=== PATIENT | female | born 1995 | race Caucasian/White ===

== ENCOUNTER 2016-11-20 23:07 | Emergency (ER) | payer BC ==
[2016-11-20] MEDS ORDERED: Ondansetron 4 MG/2 ML SDV IVPUSH ONE (23:11)
[2016-11-20] MEDS ORDERED: Sodium Chloride 0.9% 1,000 ML IV ONE (23:11)
--- NOTE | 2016-11-20 23:13 | EDM.PDOC ---
ED HPI GENERAL MEDICAL PROBLEM - General Stated Complaint: DEHYDRATION; 7 WEEKS Time Seen by Provider: 11/20/16 23:12 Source of Information: Reports: Patient - History of Present Illness INITIAL COMMENTS - FREE TEXT/NARRATIVE: HISTORY AND PHYSICAL: History of present illness: [] Patient is 28 Patient presents 7 weeks with IUP nausea vomiting feels dehydrated LMP September 23 uncertain dates, she has had followup with Dr. Bernal at [facility], she was offered ultrasound at that time in the office however she declined. No vaginal discharge fluid leakage spotting or bleeding no low back pain and pressure No fever or chills sweats no chest pain shortness breath headache dizziness or palpitation no Review of systems: As per history of present illness and below otherwise all systems reviewed and negative. Past medical history: As per history of present illness and as reviewed below otherwise noncontributory. Surgical history: As per history of present illness and as reviewed below otherwise noncontributory. Social history: No reported history of drug or alcohol abuse. Family history: As per history of present illness and as reviewed below otherwise noncontributory. Physical exam: HEENT: Atraumatic, normocephalic, pupils reactive, negative for conjunctival pallor or scleral icterus, mucous membranes moist, throat clear, neck supple, nontender, trachea midline. Lungs: Clear to auscultation, breath sounds equal bilaterally, chest nontender. Heart: S1S2, regular, negative for clicks, rubs, or JVD. Abdomen: Soft, nondistended, nontender. Negative for masses or hepatosplenomegaly. Negative for costovertebral tenderness. Pelvis: Stable nontender. Genitourinary: Deferred. Rectal: Deferred. Extremities: Atraumatic, negative for cords or calf pain. Neurovascular unremarkable. Neuro: Awake, alert, oriented. Cranial nerves II through XII unremarkable. Cerebellum unremarkable. Motor and sensory unremarkable throughout. Exam nonfocal. Diagnostics: [] UA [employer]: [] 1 L normal saline bolus Zofran 8 mg IV Zofran 8 mg ODT every 8 when necessary #30 no refill Followup with Dr. Bernal as scheduled sooner as needed Impression: [] Nausea vomiting and Definitive disposition and diagnosis as appropriate pending reevaluation and review of above. no pain Pain Score (Numeric/FACES): 0 - Related Data Allergies Allergy/AdvReac Type Severity Reaction Status Date / Time No Known Allergies Allergy Verified 11/20/16 23:16 Home Meds: Home Meds Pnv No.122/Iron/Folic Acid [ Multi Tablet] 1 tab PO DAILY 11/20/16 [ History] Progesterone,Micronized [Progesterone] 100 mg PO DAILY 11/20/16 [History] Past Medical History - Past Health History Medical/Surgical History: Denies Medical/Surgical History Social & Family History - Tobacco Use Smoking Status *Q: Never Smoker - Alcohol Use Days Per Week of Alcohol Use: 0 - Recreational Drug Use Recreational Drug Use: No ED ROS GENERAL - Review of Systems Review Of Systems: ROS reveals no pertinent complaints other than HPI. ED EXAM, GENERAL - Physical Exam Exam: See Below Course - Vital Signs Last Recorded V/S: Last Vital Signs Temp 36.6 C 11/20/16 23:18 Pulse 70 11/20/16 23:18 Resp 16 11/20/16 23:18 BP 121/76 11/20/16 23:18 Pulse Ox 98 11/20/16 23:18 - Orders/Labs/Meds Orders: Active Orders 24 hr Category Date Time Status HCG QUALITATIVE,URINE [URCHEM] Stat Lab 11/21/16 00:07 Ordered UA W/MICROSCOPIC [URIN] Stat Lab 11/21/16 00:07 Ordered Sodium Chloride 0.9% [Normal Saline] 1,000 ml Med 11/20/16 23:11 Active IV STAT Medication Orders Sodium Chloride (Normal Saline) 1,000 mls @ 999 mls/hr IV STAT ONE Stop: 11/21/16 00:11 Last Admin: 11/20/16 23:31 Dose: 999 mls/hr Meds: Medications Generic Name Dose Route Start Last Admin Trade Name Freq PRN Reason Stop Dose Admin Sodium Chloride 1,000 mls @ 999 mls/hr 11/20/16 23:11 11/20/16 23:31 Normal Saline IV 11/21/16 00:11 999 mls/hr STAT ONE Administration Discontinued Medications Generic Name Dose Route Start Last Admin Trade Name Freq PRN Reason Stop Dose Admin Ondansetron HCl 8 mg 11/20/16 23:11 11/20/16 23:31 Zofran IVPUSH 11/20/16 23:12 8 mg ONETIME ONE Administration Departure - Departure Time of Disposition: 00:08 Disposition: Home, Self-Care 01 Condition: good Clinical Impression: Vomiting during - Discharge Information Additional Instructions: Medication as prescribed Return if symptoms persist or worsen Followup with Dr. Bernal as scheduled sooner as needed The following information is given to patients seen in the emergency department who are being discharged to home. This information is to outline your options for follow-up care. We provide all patients seen in our emergency department with a follow-up referral. The need for follow-up, as well as the timing and circumstances, are variable depending upon the specifics of your emergency department visit. If you don't have a primary care physician on staff, we will provide you with a referral. We always advise you to contact your personal physician following an emergency department visit to inform them of the circumstance of the visit and for follow-up with them and/or the need for any referrals to a consulting specialist. The emergency department will also refer you to a specialist when appropriate. This referral assures that you have the opportunity for follow-up care with a specialist. All of these measure are taken in an effort to provide you with optimal care, which includes your follow-up. Under all circumstances we always encourage you to contact your private physician who remains a resource for coordinating your care. When calling for follow-up care, please make the office aware that this follow-up is from your recent emergency room visit. If for any reason you are refused follow-up, please contact the [facility] emergency department at and asked to speak to the emergency department charge nurse. - My Orders Last 24 Hours: My Active Orders 11/20/16 23:11 Sodium Chloride 0.9% [Normal Saline] 1,000 ml IV STAT 11/21/16 00:07 HCG QUALITATIVE,URINE [URCHEM] Stat UA W/MICROSCOPIC [URIN] Stat - Assessment/Plan Last 24 Hours: My Active Orders 11/20/16 23:11 Sodium Chloride 0.9% [Normal Saline] 1,000 ml IV STAT 11/21/16 00:07 HCG QUALITATIVE,URINE [URCHEM] Stat UA W/MICROSCOPIC [URIN] Stat
[2016-11-21 00:29] VITALS: BP 111/68
== END 2016-11-21 00:33 | disposition home or self-care (01) ==
LOC: MW.ED 23:07
DX: O21.9 Vomiting of pregnancy, unspecified (principal); Z3A.01 Less than 8 weeks gestation of pregnancy; Z79.899 Other long term (current) drug therapy
CPT/HCPCS: 81001; 81025; 96361; 96374; 99283; J2405; J7040; 99284

== ENCOUNTER 2017-07-07 14:11 | Inpatient (IN) | payer BC ==
[2017-07-07] MEDS ORDERED: Methylergonovine 0.2 MG/1 ML Amp IM PRN (15:24)
[2017-07-07] MEDS ORDERED: Sodium Chloride 0.9% 2.5 ML Syringe FLUSH PRN (15:24)
[2017-07-07] MEDS ORDERED: Misoprostol 200 MCG Tab PO PRN (15:24)
[2017-07-07] MEDS ORDERED: Nalbuphine 10 MG/1 ML Vial IVPUSH PRN (15:24)
[2017-07-07] MEDS ORDERED: Sodium Chloride 0.9% 10 ML Syringe FLUSH PRN (15:24)
[2017-07-07] MEDS ORDERED: Lidocaine 1% 50 ML MDV INJECT PRN (15:24)
[2017-07-07] MEDS ORDERED: Carboprost Tromethamine 250 MCG/1 ML Amp IM PRN (15:24)
[2017-07-07] MEDS ORDERED: Water For Irrigation,Sterile 1,000 ML Container IRR PRN (15:24)
[2017-07-07] MEDS ORDERED: Oxytocin/0.9 % Sodium Chloride 30 UNIT/500 ML BAG IV SCH ×2 (15:30→18:15)
--- NOTE | 2017-07-07 17:41 | PCM.LDHP ---
L&D History of Present Illness - General Date of Service: 07/07/17 Admit Problem/Dx: Patient Status Order with Admit Dx/Problem 07/07/17 14:20 Patient Status [ADT] Routine 07/07/17 15:24 Patient Status [ADT] Routine Admission Diagnosis/Problem Admission Diagnosis/Problem - planned Source of Information: Patient History Limitations: Reports: No Limitations - History of Present Illness Improves with: Reports: None Worsens with: Reports: None Associated Symptoms: Reports: N - Related Data Allergies/Adverse Reactions: Allergies Allergy/AdvReac Type Severity Reaction Status Date / Time No Known Allergies Allergy Verified 11/20/16 23:16 Home Medications: Home Meds Pnv No.122/Iron/Folic Acid [ Multi Tablet] 1 tab PO DAILY 11/20/16 [ History] Progesterone,Micronized [Progesterone] 100 mg PO DAILY 11/20/16 [History] Past Medical History - Past Health History Medical/Surgical History: Denies Medical/Surgical History HEENT History: Reports: None Cardiovascular History: Reports: None Respiratory History: Reports: None Gastrointestinal History: Reports: GERD Genitourinary History: Reports: None 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: Musculoskeletal History: Reports: None Neurological History: Reports: None Psychiatric History: Reports: Anxiety Endocrine/Metabolic History: Reports: None Hematologic History: Reports: None Oncologic (Cancer) History: Reports: None Dermatologic History: Reports: None - Infectious Disease History Infectious Disease History: Reports: None - Past Surgical History Female Surgical History: Reports: D&C Social & Family History - Family History Family Medical History: Noncontributory - Tobacco Use Smoking Status *Q: Never Smoker - Caffeine Use Caffeine Use: Reports: None - Alcohol Use Days Per Week of Alcohol Use: 0 - Recreational Drug Use Recreational Drug Use: No H&P Review of Systems - Review of Systems: Review Of Systems: See Below General: Reports: No Symptoms HEENT: Reports: No Symptoms Pulmonary: Reports: No Symptoms Cardiovascular: Reports: No Symptoms Gastrointestinal: Reports: No Symptoms Genitourinary: Reports: No Symptoms Musculoskeletal: Reports: No Symptoms Skin: Reports: No Symptoms Psychiatric: Reports: No Symptoms Neurological: Reports: No Symptoms Hematologic/Lymphatic: Reports: No Symptoms Immunologic: Reports: No Symptoms L&D Exam - Exam Exam: See Below - Vital Signs Weight: 87.997 kg - OB Specific Fundal Height In cm: 36 Contraction Intensity: Mild Movement: Active Heart Tones: Present Presentation: Vertex - Smith Score Smith Score Cervix Position: Posterior Smith Score Consistency: Soft Smith Score Effacement: >80% Smith Score Dilation: 1-2 cm Smith Score Infant's Station: -1 ,0 Smith Score Total: 8 - Exam General: Alert, Oriented HEENT: PERRLA, Conjunctiva Clear, EACs Clear, EOMI, Hearing Intact, Mucosa Moist & [place], Nares Patent, Normal Nasal Septum, Posterior Pharynx Clear, TMs Clear Neck: Supple, Trachea Midline Lungs: Clear to Auscultation, Normal Respiratory Effort Cardiovascular: Regular Rate, Regular Rhythm GI/Abdominal Exam: Normal Bowel Sounds, Soft, Non-Tender, No Organomegaly, No Distention, No Abnormal Bruit, No Mass, Pelvis Stable Rectal Exam: Normal Exam, Normal Rectal Tone Genitourinary: Normal external exam, Normal bimanual exam, Normal speculum exam Back Exam: Normal Inspection, Full Range of Motion Extremities: Normal Inspection, Normal Range of Motion, Non-Tender, No Pedal Edema, Normal Capillary Refill Skin: Warm, Dry, Intact Neurological: Cranial Nerves Intact, Reflexes Equal Bilateral Psychiatric: Alert, Normal Affect, Normal Mood - Patient Data Lab Results Last 24 hrs: Laboratory Results - last 24 hr 07/07/17 07/07/17 07/07/17 Range/Units 14:27 15:48 15:48 WBC 9.12 (4.0-11.0) K/uL RBC 4.03 L (4.30-5.90) M/uL Hgb 12.7 (12.0-16.0) g/dL Hct 37.6 (36.0-46.0) % MCV 93.3 (80.0-98.0) fL MCH 31.5 (27.0-32.0) pg MCHC 33.8 (31.0-37.0) g/dL RDW Std Deviation 42.5 (28.0-62.0) fl RDW Coeff of Jessy 13 (11.0-15.0) % Plt Count 177 (150-400) K/uL MPV 10.90 (7.40-12.00) fL Nucleated RBC % 0.0 /100WBC Nucleated RBCs # 0 K/uL Membrane Rupture POSITIVE Blood Type O POSITIVE Antibody Screen NEGATIVE Result Diagrams: 07/07/17 15:48 Problem List Initiated/Reviewed/Updated: Yes Orders Last 24hrs: Active Orders 24 hr Category Date Time Status Patient Status [ADT] Routine ADT 07/07/17 14:20 Active Patient Status [ADT] Routine ADT 07/07/17 15:24 Active Heart Tones [RC] CONTINUOUS Care 07/07/17 15:24 Active Non Stress Test [RC] PER UNIT ROUTINE Care 07/07/17 14:20 Active Non Stress Test [RC] PER UNIT ROUTINE Care 07/07/17 15:24 Active May Shower [RC] ASDIRECTED Care 07/07/17 15:24 Active Notify Provider [RC] PRN Care 07/07/17 15:24 Active Up ad Jimena [RC] ASDIRECTED Care 07/07/17 14:20 Active Up ad Jimena [RC] ASDIRECTED Care 07/07/17 15:24 Active Vaginal Exam [RC] Click to Edit Care 07/07/17 14:20 Active Vaginal Exam [RC] PRN Care 07/07/17 15:24 Active Vital Signs [RC] PER UNIT ROUTINE Care 07/07/17 14:20 Active Vital Signs [RC] PER UNIT ROUTINE Care 07/07/17 15:24 Active Clear Liquid Diet [DIET] Diet 07/07/17 Dinner Active Butorphanol [Stadol] Med 07/07/17 15:24 Active 1 mg IVPUSH ASDIRECTED PRN Carboprost Tromethamine [Hemabate DS] Med 07/07/17 15:24 Active 250 mcg IM ASDIRECTED PRN Lactated Ringers [Ringers, Lactated] 1,000 ml Med 07/07/17 15:30 Active IV ASDIRECTED Lidocaine 1% [Xylocaine 1%] Med 07/07/17 15:24 Active 50 ml INJECT .ONCE PRN Methylergonovine [Methergine] Med 07/07/17 15:24 Active 0.2 mg IM ASDIRECTED PRN Misoprostol [Cytotec] Med 07/07/17 15:24 Active 200 mcg PO .ONCE PRN Nalbuphine [Nubain] Med 07/07/17 15:24 Active 10 mg IVPUSH ASDIRECTED PRN Oxytocin/0.9 % Sodium Chloride [Oxytocin 30 Unit/500 ML Med 07/07/17 15:30 Active -NS] 30 unit in 500 ml IV TITRATE Sodium Chloride 0.9% [Saline Flush] Med 07/07/17 15:24 Active 10 ml FLUSH ASDIRECTED PRN Sodium Chloride 0.9% [Saline Flush] Med 07/07/17 15:24 Active 2.5 ml FLUSH ASDIRECTED PRN Water For Irrigation,Sterile [Sterile Water for Med 07/07/17 15:24 Active Irrigation] 1,000 ml IRR ASDIRECTED PRN Scalp Electrode [WOMSER] Per Unit Routine Oth 07/07/17 15:24 Ordered Peripheral IV Insertion Adult [OM.PC] Routine Oth 07/07/17 15:24 Ordered Resuscitation Status Routine Resus Stat 07/07/17 14:20 Ordered Medication Orders Butorphanol Tartrate (Stadol) 1 mg IVPUSH ASDIRECTED PRN PRN Reason: Pain Carboprost Tromethamine (Hemabate Ds) 250 mcg IM ASDIRECTED PRN PRN Reason: Post Hemorrhage Lactated Ringer's (Ringers, Lactated) 1,000 mls @ 150 mls/hr IV ASDIRECTED XIOMARA Oxytocin/Sodium Chloride (Oxytocin 30 Unit/500 Ml-Ns) 30 unit in 500 mls @ 999 mls/hr IV TITRATE XIOMARA Lidocaine HCl (Xylocaine 1%) 50 ml INJECT .ONCE PRN PRN Reason: Laceration repair Methylergonovine Maleate (Methergine) 0.2 mg IM ASDIRECTED PRN PRN Reason: Post Hemorrhage Misoprostol (Cytotec) 200 mcg PO .ONCE PRN PRN Reason: Post Hemorrhage Nalbuphine HCl (Nubain) 10 mg IVPUSH ASDIRECTED PRN PRN Reason: Pain (severe 7-10) Sodium Chloride (Saline Flush) 10 ml FLUSH ASDIRECTED PRN PRN Reason: Keep Vein Open Sodium Chloride (Saline Flush) 2.5 ml FLUSH ASDIRECTED PRN PRN Reason: Keep Vein Open Sterile Water (Sterile Water For Irrigation) 1,000 ml IRR ASDIRECTED PRN PRN Reason: delivery Assessment/Plan Comment:: Term 39+2 SROM confirmed will admit and start induction with Cytoec and pitocin.
[2017-07-07] MEDS ORDERED: Terbutaline 1 MG/ML SDV SUBCUT PRN (18:03)
[2017-07-07] MEDS: Misoprostol 25 MCG (1/4 of 100 MCG) Tab VAG PRN (19:29)
[2017-07-07] MEDS: Misoprostol 25 MCG (1/4 of 100 MCG) Tab PO PRN (19:29)
[2017-07-08] MEDS: Butorphanol 1 MG/ML SDV IVPUSH PRN ×2 (00:07→02:01)
[2017-07-08] MEDS: Misoprostol 25 MCG (1/4 of 100 MCG) Tab VAG PRN (01:43)
[2017-07-08] MEDS: Misoprostol 25 MCG (1/4 of 100 MCG) Tab PO PRN (01:43)
[2017-07-08] MEDS: Lactated Ringers 1,000 ML IV SCH ×3 (04:23→06:11)
[2017-07-08] MEDS ORDERED: Ropivacaine 100 ML ONE (04:50)
[2017-07-08] MEDS ORDERED: fentaNYL 100 MCG/2 ML SDV ONE (04:50)
--- NOTE | 2017-07-08 05:23 | PCM.PREANE ---
Preanesthetic Assessment - Anesthesia/Transfusion/Family Hx Anesthesia History: Prior Anesthesia Without Reaction Family History of Anesthesia Reaction: Yes (Pt states mother is "slow to come out", but denies any need for prolonged ventilation) - Review of Systems General: No Symptoms Pulmonary: No Symptoms Cardiovascular: No Symptoms Gastrointestinal: No Symptoms Neurological: No Symptoms Other: Reports: None - Physical Assessment NPO Status Date: 07/08/17 NPO Status Time: 05:19 (sips/chips) Pulse: 60 Blood Pressure: 126/85 Height: 5 ft 7 in Weight: 194 lb ASA Class: 2 Mental Status: Alert & Oriented x3 Airway Class: Mallampati = 1 Dentition: Reports: Normal Dentition Thyro-Mental Finger Breadths: 3 Mouth Opening Finger Breadths: 3 ROM/Head Extension: Full Lungs: Clear to Auscultation, Normal Respiratory Effort Cardiovascular: Regular Rate, Regular Rhythm - Lab Values: Laboratory Last Values WBC 9.12 K/uL (4.0-11.0) 07/07/17 15:48 RBC 4.03 M/uL (4.30-5.90) L 07/07/17 15:48 Hgb 12.7 g/dL (12.0-16.0) 07/07/17 15:48 Hct 37.6 % (36.0-46.0) 07/07/17 15:48 MCV 93.3 fL (80.0-98.0) 07/07/17 15:48 MCH 31.5 pg (27.0-32.0) 07/07/17 15:48 MCHC 33.8 g/dL (31.0-37.0) 07/07/17 15:48 RDW Std Deviation 42.5 fl (28.0-62.0) 07/07/17 15:48 RDW Coeff of Jessy 13 % (11.0-15.0) 07/07/17 15:48 Plt Count 177 K/uL (150-400) 07/07/17 15:48 MPV 10.90 fL (7.40-12.00) 07/07/17 15:48 Nucleated RBC % 0.0 /100WBC 07/07/17 15:48 Nucleated RBCs # 0 K/uL 07/07/17 15:48 Membrane Rupture POSITIVE 07/07/17 14:27 Blood Type O POSITIVE 07/07/17 15:48 Antibody Screen NEGATIVE 07/07/17 15:48 - Allergies Allergies/Adverse Reactions: Allergies Allergy/AdvReac Type Severity Reaction Status Date / Time No Known Allergies Allergy Verified 11/20/16 23:16 - Blood Blood Available: No Product(s) Available: None - Anesthesia Plan Free Text/Narrative:: Labor Epidural Pre-Op Medication Ordered: None - Acknowledgements Anesthesia Type Planned: Epidural Pt an Appropriate Candidate for the Planned Anesthesia: Yes Alternatives and Risks of Anesthesia Discussed w Pt/Guardian: Yes Pt/Guardian Understands and Agrees with Anesthesia Plan: Yes PreAnesthesia Questionnaire - Past Health History Medical/Surgical History: Denies Medical/Surgical History HEENT History: Reports: None Cardiovascular History: Reports: None Respiratory History: Reports: None Gastrointestinal History: Reports: GERD (bad reflux with ) Genitourinary History: Reports: None 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: Musculoskeletal History: Reports: None Neurological History: Reports: None Psychiatric History: Reports: Anxiety Endocrine/Metabolic History: Reports: None Hematologic History: Reports: None Oncologic (Cancer) History: Reports: None Dermatologic History: Reports: None - Infectious Disease History Infectious Disease History: Reports: None - Past Surgical History Female Surgical History: Reports: D&C - SUBSTANCE USE Smoking Status *Q: Never Smoker Days Per Week of Alcohol Use: 0 Recreational Drug Use History: No - HOME MEDS Home Medications: Home Meds Pnv No.122/Iron/Folic Acid [ Multi Tablet] 1 tab PO DAILY 11/20/16 [ History] Progesterone,Micronized [Progesterone] 100 mg PO DAILY 11/20/16 [History] - CURRENT (IN HOUSE) MEDS Current Meds: Current Medications Butorphanol Tartrate (Stadol) 1 mg IVPUSH ASDIRECTED PRN PRN Reason: Pain Last Admin: 07/08/17 02:01 Dose: 1 mg Carboprost Tromethamine (Hemabate Ds) 250 mcg IM ASDIRECTED PRN PRN Reason: Post Hemorrhage Lactated Ringer's (Ringers, Lactated) 1,000 mls @ 150 mls/hr IV ASDIRECTED XIOMARA Last Admin: 07/08/17 04:23 Dose: 150 mls/hr Oxytocin/Sodium Chloride (Oxytocin 30 Unit/500 Ml-Ns) 30 unit in 500 mls @ 999 mls/hr IV TITRATE XIOMARA Oxytocin/Sodium Chloride (Oxytocin 30 Unit/500 Ml-Ns) 30 unit in 500 mls @ 2 mls/hr IV TITRATE XIOMARA; 2 MUNITS/MIN PRN Reason: Protocol Lidocaine HCl (Xylocaine 1%) 50 ml INJECT .ONCE PRN PRN Reason: Laceration repair Methylergonovine Maleate (Methergine) 0.2 mg IM ASDIRECTED PRN PRN Reason: Post Hemorrhage Misoprostol (Cytotec) 200 mcg PO .ONCE PRN PRN Reason: Post Hemorrhage Misoprostol (Cytotec) 25 mcg PO Q4HR PRN PRN Reason: cervical ripening Last Admin: 07/08/17 01:43 Dose: 25 mcg Misoprostol (Cytotec) 25 mcg VAG Q4H PRN PRN Reason: Cervical Ripening Last Admin: 07/08/17 01:43 Dose: 25 mcg Nalbuphine HCl (Nubain) 10 mg IVPUSH ASDIRECTED PRN PRN Reason: Pain (severe 7-10) Sodium Chloride (Saline Flush) 10 ml FLUSH ASDIRECTED PRN PRN Reason: Keep Vein Open Sodium Chloride (Saline Flush) 2.5 ml FLUSH ASDIRECTED PRN PRN Reason: Keep Vein Open Sterile Water (Sterile Water For Irrigation) 1,000 ml IRR ASDIRECTED PRN PRN Reason: delivery Terbutaline Sulfate (Brethine) 0.25 mg SUBCUT ASDIRECTED PRN PRN Reason: Tacysystole Discontinued Medications Fentanyl (Sublimaze) Confirm Administered Dose 100 mcg .ROUTE .STK-MED ONE Stop: 07/08/17 04:51 Ropivacaine (Naropin 0.2%) Confirm Administered Dose 100 mls @ as directed .ROUTE .STK-MED ONE Stop: 07/08/17 04:51
[2017-07-08] MEDS ORDERED: Bupivacaine 0.5% 10 ML SDV ONE (09:15)
[2017-07-08] MEDS ORDERED: Ropivacaine 0.2% 2 MG/ML 20 ML SDV ONE (09:19)
--- NOTE | 2017-07-08 14:16 | PCM.DEL ---
L & D Note - General Info Date of Service: 07/08/17 Mother's Due Date: 07/11/17 - Delivery Note Labor: Augmented by Oxytocin Cervical Ripening Method: Oxytocin Delivery Outcome: Livebirth Delivery Method: Spontaneous Vaginal Delivery-Single Infant Delivery Mode: Spontaneous Presentation: Vertex Nuchal Cord: Present Anesthesia Type: Epidural Amniotic Fluid Description: Clear Episiotomy Type: None Laceration: 2nd Degree, Perineal Suture type: Vicryl Suture size: 3-0 Placenta: Intact, Spontaneous Cord: 3 Vessels Resuscitation Needed: No : Stimulated, [place] Used, Warmer Used Score 1 min: 8 Score 5 min: 9 - General Info Date of Service: 07/08/17 Admission Dx/Problem (Free Text): Patient Status Order with Admit Dx/Problem 07/07/17 14:20 Patient Status [ADT] Routine 07/07/17 15:24 Patient Status [ADT] Routine Admission Diagnosis/Problem Admission Diagnosis/Problem - planned Subjective Update: 21 year old female that is now a s/p of a term male with scores of 8 and 9 at 1 and 5 minutes respectively. No complications noted during delivery. Mother will be breast feeding. She did suffer a second degree perineal tear that was repaired with 3-0 vicryl. Patient tolerated this well. Functional Status: Reports: Pain Controlled - Review of Systems General: Reports: No Symptoms HEENT: Reports: No Symptoms Pulmonary: Reports: No Symptoms Cardiovascular: Reports: No Symptoms Gastrointestinal: Reports: No Symptoms Genitourinary: Reports: No Symptoms Musculoskeletal: Reports: No Symptoms Skin: Reports: No Symptoms Neurological: Reports: Other (received epidural. very little feeling in legs currently.) Psychiatric: Reports: No Symptoms - Patient Data Vitals - Most Recent: Last Vital Signs Temp Pulse 60 07/08/17 05:23 Resp BP 126/85 07/08/17 05:23 Pulse Ox Weight - Most Recent: 194 lb Lab Results Last 24 Hours: Laboratory Results - last 24 hr 07/07/17 07/07/17 07/07/17 Range/Units 14:27 15:48 15:48 WBC 9.12 (4.0-11.0) K/uL RBC 4.03 L (4.30-5.90) M/uL Hgb 12.7 (12.0-16.0) g/dL Hct 37.6 (36.0-46.0) % MCV 93.3 (80.0-98.0) fL MCH 31.5 (27.0-32.0) pg MCHC 33.8 (31.0-37.0) g/dL RDW Std Deviation 42.5 (28.0-62.0) fl RDW Coeff of Jessy 13 (11.0-15.0) % Plt Count 177 (150-400) K/uL MPV 10.90 (7.40-12.00) fL Nucleated RBC % 0.0 /100WBC Nucleated RBCs # 0 K/uL Membrane Rupture POSITIVE Blood Type O POSITIVE Antibody Screen NEGATIVE Med Orders - Current: Current Medications Butorphanol Tartrate (Stadol) 1 mg IVPUSH ASDIRECTED PRN PRN Reason: Pain Last Admin: 07/08/17 02:01 Dose: 1 mg Carboprost Tromethamine (Hemabate Ds) 250 mcg IM ASDIRECTED PRN PRN Reason: Post Hemorrhage Lactated Ringer's (Ringers, Lactated) 1,000 mls @ 150 mls/hr IV ASDIRECTED XIOMARA Last Admin: 07/08/17 06:11 Dose: 150 mls/hr Oxytocin/Sodium Chloride (Oxytocin 30 Unit/500 Ml-Ns) 30 unit in 500 mls @ 999 mls/hr IV TITRATE XIOMARA Oxytocin/Sodium Chloride (Oxytocin 30 Unit/500 Ml-Ns) 30 unit in 500 mls @ 2 mls/hr IV TITRATE XIOMARA; 2 MUNITS/MIN PRN Reason: Protocol Last Titration: 07/08/17 07:55 Dose: 6 munits/min, 6 mls/hr Lidocaine HCl (Xylocaine 1%) 50 ml INJECT .ONCE PRN PRN Reason: Laceration repair Methylergonovine Maleate (Methergine) 0.2 mg IM ASDIRECTED PRN PRN Reason: Post Hemorrhage Misoprostol (Cytotec) 200 mcg PO .ONCE PRN PRN Reason: Post Hemorrhage Misoprostol (Cytotec) 25 mcg PO Q4HR PRN PRN Reason: cervical ripening Last Admin: 07/08/17 01:43 Dose: 25 mcg Misoprostol (Cytotec) 25 mcg VAG Q4H PRN PRN Reason: Cervical Ripening Last Admin: 07/08/17 01:43 Dose: 25 mcg Nalbuphine HCl (Nubain) 10 mg IVPUSH ASDIRECTED PRN PRN Reason: Pain (severe 7-10) Sodium Chloride (Saline Flush) 10 ml FLUSH ASDIRECTED PRN PRN Reason: Keep Vein Open Sodium Chloride (Saline Flush) 2.5 ml FLUSH ASDIRECTED PRN PRN Reason: Keep Vein Open Sterile Water (Sterile Water For Irrigation) 1,000 ml IRR ASDIRECTED PRN PRN Reason: delivery Terbutaline Sulfate (Brethine) 0.25 mg SUBCUT ASDIRECTED PRN PRN Reason: Tacysystole Discontinued Medications Bupivacaine HCl (Sensorcaine-Mpf 0.5%) Confirm Administered Dose 10 ml .ROUTE .STK-MED ONE Stop: 07/08/17 09:16 Last Admin: 07/08/17 11:25 Dose: Not Given Fentanyl (Sublimaze) Confirm Administered Dose 100 mcg .ROUTE .[employer]-MED ONE Stop: 07/08/17 04:51 Last Admin: 07/08/17 07:52 Dose: Not Given Ropivacaine (Naropin 0.2%) Confirm Administered Dose 100 mls @ as directed .ROUTE .[employer]-MED ONE Stop: 07/08/17 04:51 Last Admin: 07/08/17 07:52 Dose: Not Given Ropivacaine (Naropin 0.2%) Confirm Administered Dose 20 ml .ROUTE .[employer]-MED ONE Stop: 07/08/17 09:20 Last Admin: 07/08/17 11:25 Dose: Not Given - Exam General: Alert, Oriented (Female) Exam: Other (intact placenta delivered along with multiple clots. 2nd degree perineal tear was repaired with 3-0 vicryl. ) Wound/Incisions: Other (second degree perineal laceration repaired with 3-0 vicryl. ) Neurological: Other (received epidural. very little feeling in legs currently.) Psy/Mental Status: Alert, Normal Affect, Normal Mood - Problem List & Annotations (1) Spontaneous vaginal delivery SNOMED Code(s): 47563564 Code(s): O80 - ENCOUNTER FOR FULL-TERM UNCOMPLICATED DELIVERY Status: Acute Current Visit: Yes - Problem List Review Problem List Initiated/Reviewed/Updated: Yes - Plan Plan:: A: 21 year old female that is now a that is s/p of a term male . No complications during delivery. P: routine post- care.
[2017-07-08] MEDS ORDERED: Bisacodyl 10 MG Supp RECTAL PRN ×2 (14:22→15:06)
[2017-07-08] MEDS ORDERED: Benzocaine/Menthol 20%-0.5% Spray 78 GM Cannister TOP PRN ×2 (14:22→15:06)
[2017-07-08] MEDS ORDERED: Ibuprofen 400 MG Tab PO PRN ×2 (14:22→15:06)
[2017-07-08] MEDS ORDERED: Ibuprofen 800 MG Tab PO PRN (14:22)
[2017-07-08] MEDS ORDERED: oxyCODONE 5 MG Tab PO PRN ×2 (14:22→15:06)
[2017-07-08] MEDS ORDERED: Docusate Sodium 100 MG Cap PO PRN (14:22)
[2017-07-08] MEDS ORDERED: Ondansetron 4 MG/2 ML SDV IVPUSH PRN (14:22)
[2017-07-08] MEDS ORDERED: Witch Hazel Medicated Pads 40/Jar TOP PRN ×2 (14:22→15:06)
[2017-07-08] MEDS ORDERED: Lanolin 100% Cream 7 GM Tube TOP PRN ×2 (14:22→15:06)
[2017-07-08] MEDS ORDERED: Acetaminophen 500 MG Tab PO PRN ×4 (14:22→15:06)
--- NOTE | 2017-07-08 16:28 | PCM48HPAN ---
Post Anesthesia Note - EVALUATION WITHIN 48HRS OF ANESTHETIC Vital Signs in Normal Range: Yes Patient Participated in Evaluation: Yes Respiratory Function Stable: Yes Airway Patent: Yes Cardiovascular Function Stable: Yes Hydration Status Stable: Yes Pain Control Satisfactory: Yes Nausea and Vomiting Control Satisfactory: Yes Mental Status Recovered: Yes
[2017-07-08] MEDS: Ibuprofen 800 MG Tab PO PRN (21:17)
[2017-07-08] MEDS: Docusate Sodium 100 MG Cap PO PRN (21:18)
[2017-07-09] MEDS: Ibuprofen 800 MG Tab PO PRN ×2 (05:41→11:40)
--- NOTE | 2017-07-09 11:24 | PCM.DCSUM1 ---
Discharge Summary - Hospital Course Free Text/Narrative:: Discharge home with . Follow up 6 weeks or sooner if needed. - Discharge Data Discharge Date: 07/09/17 Discharge Disposition: Home, Self-Care 01 Condition: Good - Patient Instructions Diet: Usual Diet as Tolerated Activity: As Tolerated, No Strenuous Activities, Rest and Relax Today Driving: May Drive Today Showering/Bathing: May Shower Notify Provider of: Fever, Increased Pain, Swelling and Redness, Nausea and/or Vomiting Other/Special Instructions: Discharge home with infant. Follow up 6 weeks or sooner if needed. - Discharge Plan Home Medications: Home Meds Pnv No.122/Iron/Folic Acid [ Multi Tablet] 1 tab PO DAILY 11/20/16 [ History] Progesterone,Micronized [Progesterone] 100 mg PO DAILY 11/20/16 [History] Referrals: [facility] [Outside] Laura [place] CNM [Mid-] - 08/15/17 8:30 am - General Info Date of Service: 07/09/17 Admission Dx/Problem (Free Text: Patient Status Order with Admit Dx/Problem 07/07/17 14:20 Patient Status [ADT] Routine 07/07/17 15:24 Patient Status [ADT] Routine Admission Diagnosis/Problem Admission Diagnosis/Problem - planned Subjective Update: 21 year old female that is now a s/p of a term male with scores of 8 and 9 at 1 and 5 minutes respectively. No complications noted during delivery. Mother will be breast feeding. She did suffer a second degree perineal tear that was repaired with 3-0 vicryl. Patient tolerated this well. Functional Status: Reports: Pain Controlled, Tolerating Diet, Ambulating, Urinating - Review of Systems General: Reports: No Symptoms HEENT: Reports: No Symptoms Pulmonary: Reports: No Symptoms Cardiovascular: Reports: No Symptoms Gastrointestinal: Reports: No Symptoms Genitourinary: Reports: No Symptoms Musculoskeletal: Reports: No Symptoms Skin: Reports: No Symptoms Neurological: Reports: No Symptoms Psychiatric: Reports: No Symptoms - Patient Data Vitals - Most Recent: Last Vital Signs Temp 36.4 C 07/09/17 08:29 Pulse 87 07/09/17 08:29 Resp 18 07/09/17 08:29 BP 114/56 L 07/09/17 08:29 Pulse Ox 98 07/09/17 08:29 Weight - Most Recent: 87.997 kg Med Orders - Current: Current Medications Acetaminophen (Tylenol Extra Strength) 500 mg PO Q4H PRN PRN Reason: Pain Acetaminophen (Tylenol Extra Strength) 1,000 mg PO Q4H PRN PRN Reason: Pain Benzocaine/Menthol (Dermoplast Pain Relief 20%-0.5% [place]) 78 gm TOP ASDIRECTED PRN PRN Reason: Perineal Comfort Measure Bisacodyl (Dulcolax) 10 mg RECTAL .ONCE PRN PRN Reason: Constipation Docusate Sodium (Colace) 100 mg PO BID PRN PRN Reason: Constipation Last Admin: 07/08/17 21:18 Dose: 100 mg Emollient Ointment (Lansinoh Hpa) 0 gm TOP ASDIRECTED PRN PRN Reason: Sore Nipples Ibuprofen (Motrin) 400 mg PO Q4H PRN PRN Reason: Pain Ibuprofen (Motrin) 800 mg PO Q6H PRN PRN Reason: Pain Last Admin: 07/09/17 05:41 Dose: 800 mg Oxycodone HCl (Oxycodone) 5 mg PO Q2H PRN PRN Reason: Pain Witch Selin (Tucks) 1 pad TOP ASDIRECTED PRN PRN Reason: comfort care Discontinued Medications Acetaminophen (Tylenol Extra Strength) 500 mg PO Q4H PRN PRN Reason: Pain Acetaminophen (Tylenol Extra Strength) 1,000 mg PO Q4H PRN PRN Reason: Pain Benzocaine/Menthol (Dermoplast Pain Relief 20%-0.5% [place]) 78 gm TOP ASDIRECTED PRN PRN Reason: Perineal Comfort Measure Bisacodyl (Dulcolax) 10 mg RECTAL .ONCE PRN PRN Reason: Constipation Bupivacaine HCl (Sensorcaine-Mpf 0.5%) Confirm Administered Dose 10 ml .ROUTE .STK-MED ONE Stop: 07/08/17 09:16 Last Admin: 07/08/17 11:25 Dose: Not Given Butorphanol Tartrate (Stadol) 1 mg IVPUSH ASDIRECTED PRN PRN Reason: Pain Last Admin: 07/08/17 02:01 Dose: 1 mg Carboprost Tromethamine (Hemabate Ds) 250 mcg IM ASDIRECTED PRN PRN Reason: Post Hemorrhage Docusate Sodium (Colace) 100 mg PO BID PRN PRN Reason: Constipation Emollient Ointment (Lansinoh Hpa) 0 gm TOP ASDIRECTED PRN PRN Reason: Sore Nipples Fentanyl (Sublimaze) Confirm Administered Dose 100 mcg .ROUTE .Screen Tonic ONE Stop: 07/08/17 04:51 Last Admin: 07/08/17 07:52 Dose: Not Given Lactated Ringer's (Ringers, Lactated) 1,000 mls @ 150 mls/hr IV ASDIRECTED XIOMARA Last Admin: 07/08/17 06:11 Dose: 150 mls/hr Oxytocin/Sodium Chloride (Oxytocin 30 Unit/500 Ml-Ns) 30 unit in 500 mls @ 999 mls/hr IV TITRATE XIOMARA Oxytocin/Sodium Chloride (Oxytocin 30 Unit/500 Ml-Ns) 30 unit in 500 mls @ 2 mls/hr IV TITRATE XIOMARA; 2 MUNITS/MIN PRN Reason: Protocol Last Titration: 07/08/17 13:46 Dose: 999 mls/hr Ropivacaine (Naropin 0.2%) Confirm Administered Dose 100 mls @ as directed .ROUTE .Screen Tonic ONE Stop: 07/08/17 04:51 Last Admin: 07/08/17 07:52 Dose: Not Given Ibuprofen (Motrin) 400 mg PO Q4H PRN PRN Reason: Pain Ibuprofen (Motrin) 800 mg PO Q6H PRN PRN Reason: Pain Lidocaine HCl (Xylocaine 1%) 50 ml INJECT .ONCE PRN PRN Reason: Laceration repair Methylergonovine Maleate (Methergine) 0.2 mg IM ASDIRECTED PRN PRN Reason: Post Hemorrhage Misoprostol (Cytotec) 200 mcg PO .ONCE PRN PRN Reason: Post Hemorrhage Misoprostol (Cytotec) 25 mcg PO Q4HR PRN PRN Reason: cervical ripening Last Admin: 07/08/17 01:43 Dose: 25 mcg Misoprostol (Cytotec) 25 mcg VAG Q4H PRN PRN Reason: Cervical Ripening Last Admin: 07/08/17 01:43 Dose: 25 mcg Nalbuphine HCl (Nubain) 10 mg IVPUSH ASDIRECTED PRN PRN Reason: Pain (severe 7-10) Ondansetron HCl (Zofran) 4 mg IVPUSH Q6H PRN PRN Reason: Nausea/Vomiting Oxycodone HCl (Oxycodone) 5 mg PO Q2H PRN PRN Reason: Pain Ropivacaine (Naropin 0.2%) Confirm Administered Dose 20 ml .ROUTE .[employer]ak-PolyRemedy ONE Stop: 07/08/17 09:20 Last Admin: 07/08/17 11:25 Dose: Not Given Sodium Chloride (Saline Flush) 10 ml FLUSH ASDIRECTED PRN PRN Reason: Keep Vein Open Sodium Chloride (Saline Flush) 2.5 ml FLUSH ASDIRECTED PRN PRN Reason: Keep Vein Open Sterile Water (Sterile Water For Irrigation) 1,000 ml IRR ASDIRECTED PRN PRN Reason: delivery Terbutaline Sulfate (Brethine) 0.25 mg SUBCUT ASDIRECTED PRN PRN Reason: Tacysystole Witch Selin (Tucks) 1 pad TOP ASDIRECTED PRN PRN Reason: comfort care - Exam General: Reports: Alert, Oriented, Cooperative, No Acute Distress Lungs: Reports: Normal Respiratory Effort GI/Abdominal Exam: Soft, Non-Tender, No Distention (Female) Exam: Vaginal Bleeding, Vaginal Tears (with repair) Back Exam: Reports: Full Range of Motion Extremities: Normal Range of Motion, Non-Tender, No Pedal Edema, Normal Capillary Refill Skin: Reports: Warm, Dry, Intact Wound/Incisions: Reports: Healing Well Neurological: Reports: No New Focal Deficit, Normal Speech, Normal Tone Psy/Mental Status: Reports: Alert, Normal Affect, Normal Mood *Q Meaningful Use (DIS) - VTE *Q VTE Criteria *Q: - Stroke *Q Stroke Criteria *Q: - AMI *Q AMI Criteria *Q:
[2017-07-09] MEDS: Docusate Sodium 100 MG Cap PO PRN (11:40)
[2017-07-09 16:15] VITALS: BP 118/56
== END 2017-07-09 17:00 | disposition home or self-care (01) | DRG 560 ==
LOC: MW.OBCHECK 14:11 → MW.OB 14:37 → MW.OBCHECK 15:30 → OBSVTOIN 07-08 15:08 → MW.OB 07-08 18:34
PROVIDERS: ADMIT Obstetrics & Gynecology; ATTEND Advanced Practice Midwife
PROC: 10E0XZZ Delivery of Products of Conception, External Approach (ICD-10-PCS; principal; 2017-07-08)
PROC: 3E0P7VZ Introduction of Hormone into Female Reproductive, Via Natural or Artificial Opening (ICD-10-PCS; 2017-07-08)
PROC: 3E033VJ Introduction of Other Hormone into Peripheral Vein, Percutaneous Approach (ICD-10-PCS; 2017-07-08)
PROC: 0KQM0ZZ Repair Perineum Muscle, Open Approach (ICD-10-PCS; 2017-07-08)
DX: O42.02 Full-term premature rupture of membranes, onset of labor within 24 hours of rupture (principal); O70.1 Second degree perineal laceration during delivery; Z3A.39 39 weeks gestation of pregnancy; Z37.0 Single live birth
CPT/HCPCS: 36415; 59025; 59409; 84112; 85027; 86850; 86900; 86901; A9270-GY; J0595; J2590; J7120

== ENCOUNTER 2019-07-18 19:19 | Emergency (ER) | payer BC ==
--- NOTE | 2019-07-18 19:50 | EDM.PDOC ---
ED HPI GENERAL MEDICAL PROBLEM - General Chief Complaint: Chest Pain Stated Complaint: CHEST PAINS Time Seen by Provider: 07/18/19 19:45 Source of Information: Reports: Patient History Limitations: Reports: No Limitations - History of Present Illness INITIAL COMMENTS - FREE TEXT/NARRATIVE: HISTORY AND PHYSICAL: History of present illness: Patient is a 23-year-old female presents to the ED with complaint of chest pain. Patient is 25 weeks gestation. She states pain began 3 days ago. She states the pain is on her left side of her chest underneath her breast and she has an aching sensation in her left arm. She states she does have pain in her neck as well. She denies injury or trauma. She states she does feel short of breath as she can't take a deep breath due to the discomfort. She denies fevers , chills, nausea, vomiting, abdominal pain, vaginal bleeding, calf pain, lower extremity swelling. She has taken tylenol without any relief of symptoms. Review of systems: As per history of present illness and below otherwise all systems reviewed and negative. Past medical history: As per history of present illness and as reviewed below otherwise noncontributory. Surgical history: As per history of present illness and as reviewed below otherwise noncontributory. Social history: No reported history of drug or alcohol abuse. Family history: As per history of present illness and as reviewed below otherwise noncontributory. Physical exam: General: Patient sitting comfortably in no acute distress and nontoxic appearing. Speaking normally without breathlessness. HEENT: Atraumatic, normocephalic, pupils reactive, negative for conjunctival pallor or scleral icterus, mucous membranes moist, throat clear, neck supple, nontender, trachea midline. No meningeal signs. Lungs: Clear to auscultation, breath sounds equal bilaterally, tenderness to palpation along the left side of the sternum and the ribs just below the left breast. Heart: S1S2, regular, negative for clicks, rubs, or overt murmur. Abdomen: Soft, nondistended, nontender. Negative for masses or hepatosplenomegaly. Negative for costovertebral tenderness. No rigidity, rebound , guarding. Pelvis: Stable nontender. Genitourinary: Deferred. Rectal: Deferred. Extremities: Atraumatic, negative for cords or calf pain. Neurovascular unremarkable. Neuro: Awake, alert, oriented. Cranial nerves II through XII unremarkable. Cerebellum unremarkable. Motor and sensory unremarkable throughout. Exam nonfocal. Notes: Diagnostics: CBC, CMP, troponin, EKG declined chest x-ray Therapeutics: none Prescriptions: none Impression: Costochondritis Plan: Take tylenol as needed Follow up with farm management teacher Return to ED As needed as discussed Definitive disposition and diagnosis as appropriate pending reevaluation and review of above. 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: Musculoskeletal History: Reports: None Neurological History: Reports: None Psychiatric History: Reports: Anxiety Endocrine/Metabolic History: Reports: None Hematologic History: Reports: None Oncologic (Cancer) History: Reports: None Dermatologic History: Reports: None - Infectious Disease History Infectious Disease History: Reports: Chicken Pox - Past Surgical History Female Surgical History: Reports: D&C Social & Family History - Family History Family Medical History: Noncontributory - Tobacco Use Smoking Status *Q: Never Smoker - Caffeine Use Caffeine Use: Reports: None - Recreational Drug Use Recreational Drug Use: No ED ROS GENERAL - Review of Systems Review Of Systems: Comprehensive ROS is negative, except as noted in HPI. ED EXAM, GENERAL - Physical Exam Exam: See Below (see dictation) Course - Vital Signs Last Recorded V/S: Last Vital Signs Temp 97.7 F 07/18/19 19:31 Pulse 76 07/18/19 19:31 Resp 16 07/18/19 19:31 BP 125/73 07/18/19 19:31 Pulse Ox 100 07/18/19 19:31 - Orders/Labs/Meds Orders: Active Orders 24 hr Category Date Time Status EKG Documentation Completion [RC] STAT Care 07/18/19 19:33 Active CULTURE URINE [RM] Stat Lab 07/18/19 20:15 Received Labs: Laboratory Tests 07/18/19 07/18/19 07/18/19 Range/Units 19:52 19:52 20:15 WBC 7.77 (4.0-11.0) K/uL RBC 3.91 L (4.30-5.90) M/uL Hgb 12.0 (12.0-16.0) g/dL Hct 35.6 L (36.0-46.0) % MCV 91.0 (80.0-98.0) fL MCH 30.7 (27.0-32.0) pg MCHC 33.7 (31.0-37.0) g/dL RDW Std Deviation 43.1 (28.0-62.0) fl RDW Coeff of Jessy 13 (11.0-15.0) % Plt Count 164 (150-400) K/uL MPV 10.00 (7.40-12.00) fL Add Manual Diff YES Neutrophils % (Manual) 32 L (48.0-80.0) % Lymphocytes % (Manual) 42 H (16.0-40.0) % Monocytes % (Manual) 22 H (0.0-15.0) % Eosinophils % (Manual) 4 (0.0-7.0) % Nucleated RBC % 0.0 /100WBC Absolute Seg Neuts 2.5 (1.4-5.7) Lymphocytes # (Manual) 3.3 H (0.6-2.4) Monocytes # (Manual) 1.7 H (0.0-0.8) Eosinophils # (Manual) 0.3 (0.0-0.7) Nucleated RBCs # 0 K/uL Sodium 140 (136-145) mmol/L Potassium 4.0 (3.5-5.1) mmol/L Chloride 105 (98-107) mmol/L Carbon Dioxide 24.7 (21.0-32.0) mmol/L BUN 16 (7.0-18.0) mg/dL Creatinine 0.7 (0.6-1.0) mg/dL Est Cr Clr Drug Dosing 115.01 mL/min Estimated GFR (MDRD) > 60.0 ml/min Glucose 81 (74-106) mg/dL Calcium 8.5 (8.5-10.1) mg/dL Total Bilirubin 0.1 L (0.2-1.0) mg/dL AST 12 L (15-37) IU/L ALT 15 (14-63) IU/L Alkaline Phosphatase 44 L (46-116) U/L Troponin I < 0.050 (0.000-0.056) ng/mL Total Protein 6.8 (6.4-8.2) g/dL Albumin 2.7 L (3.4-5.0) g/dL Globulin 4.1 H (2.6-4.0) g/dL Albumin/Globulin Ratio 0.7 L (0.9-1.6) Urine Color YELLOW Urine Appearance SLT CLOUDY Urine pH 7.5 (5.0-8.0) Ur Specific [employer] 1.020 (1.001-1.035) Urine Protein NEGATIVE (NEGATIVE) mg/dL Urine Glucose (UA) NEGATIVE (NEGATIVE) mg/dL Urine Ketones NEGATIVE (NEGATIVE) mg/dL Urine Occult Blood NEGATIVE (NEGATIVE) Urine Nitrite NEGATIVE (NEGATIVE) Urine Bilirubin NEGATIVE (NEGATIVE) Urine Urobilinogen 0.2 (<2.0) EU/dL Ur Leukocyte Esterase SMALL H (NEGATIVE) Urine RBC 0-2 (0-2/HPF) Urine WBC 2-4 (0-5/HPF) Ur Epithelial Cells OCCASIONAL (NONE-FEW) Amorphous Sediment MODERATE (NEGATIVE) Urine Bacteria FEW (NEGATIVE) Urine Mucus FEW (NONE-MOD) Departure - Departure Time of Disposition: 20:50 Disposition: Home, Self-Care 01 Condition: Good Clinical Impression: Costochondritis Forms: ED Department Discharge Additional Instructions: The following information is given to patients seen in the emergency department who are being discharged to home. This information is to outline your options for follow-up care. We provide all patients seen in our emergency department with a follow-up referral. The need for follow-up, as well as the timing and circumstances, are variable depending upon the specifics of your emergency department visit. If you don't have a primary care physician on staff, we will provide you with a referral. We always advise you to contact your personal physician following an emergency department visit to inform them of the circumstance of the visit and for follow-up with them and/or the need for any referrals to a consulting specialist. The emergency department will also refer you to a specialist when appropriate. This referral assures that you have the opportunity for follow-up care with a specialist. All of these measure are taken in an effort to provide you with optimal care, which includes your follow-up. Under all circumstances we always encourage you to contact your private physician who remains a resource for coordinating your care. When calling for follow-up care, please make the office aware that this follow-up is from your recent emergency room visit. If for any reason you are refused follow-up, please contact the [facility] Emergency Department at and asked to speak to the emergency department charge nurse. [facility] [address] [place] [id number] [address] Take tylenol as needed Follow up with farm management teacher Return to ED As needed as discussed Sepsis Event Note - Evaluation Sepsis Screening Result: No Definite Risk - Focused Exam Vital Signs: Vital Signs Temp Pulse Resp BP Pulse Ox 07/18/19 19:31 97.7 F 76 16 125/73 100 Date Exam was Performed: 07/18/19 Time Exam was Performed: 20:48 - My Orders Last 24 Hours: My Active Orders 07/18/19 19:33 EKG Documentation Completion [RC] STAT 07/18/19 20:15 CULTURE URINE [RM] Stat - Assessment/Plan Last 24 Hours: My Active Orders 07/18/19 19:33 EKG Documentation Completion [RC] STAT 07/18/19 20:15 CULTURE URINE [RM] Stat
[2019-07-18 20:21] LABS: BLOOD UREA NITROGEN,BUN 16 mg/dL (7.0-18.0); CARBON DIOXIDE,CO2 24.7 mmol/L (21.0-32.0); CHLORIDE,CL 105 mmol/L (98-107); GLUCOSE RANDOM 81 mg/dL (74-106); SODIUM,NA 140 mmol/L (136-145)
[2019-07-18 21:19] VITALS: BP 104/59; PULSE 67
== END 2019-07-18 21:19 | disposition home or self-care (01) ==
LOC: MW.ED 19:19
DX: O99.89 Other specified diseases and conditions complicating pregnancy, childbirth and the puerperium (principal); M94.0 Chondrocostal junction syndrome [Tietze]; Z3A.25 25 weeks gestation of pregnancy
CPT/HCPCS: 36415; 80053; 81001; 84484; 85025; 87086; 93005; 99284; 99285-25

== ENCOUNTER 2019-12-08 07:17 | Inpatient (IN) | payer BC ==
[2019-12-08] MEDS ORDERED: Methylergonovine 0.2 MG/1 ML Amp IM PRN (07:27)
[2019-12-08] MEDS ORDERED: Sodium Chloride 0.9% 10 ML SDV IV PRN (07:27)
[2019-12-08] MEDS ORDERED: Tranexamic Acid 1,000 MG in Sodium Chloride 0.9% 100 ML IV PRN (07:27)
[2019-12-08] MEDS ORDERED: Lidocaine 1% 50 ML MDV INJECT PRN (07:27)
[2019-12-08] MEDS ORDERED: Carboprost Tromethamine 250 MCG/1 ML Amp IM PRN (07:27)
[2019-12-08] MEDS ORDERED: Sodium Chloride 0.9% 10 ML Syringe FLUSH PRN (07:27)
[2019-12-08] MEDS ORDERED: Butorphanol 1 MG/ML SDV IVPUSH PRN (07:27)
[2019-12-08] MEDS ORDERED: Misoprostol 200 MCG Tab PO PRN (07:27)
[2019-12-08] MEDS ORDERED: Sodium Chloride 0.9% 2.5 ML Syringe FLUSH PRN (07:27)
[2019-12-08] MEDS ORDERED: Terbutaline 1 MG/ML SDV SUBCUT PRN (07:27)
[2019-12-08] MEDS ORDERED: Water For Irrigation,Sterile 1,000 ML Container IRR PRN (07:27)
[2019-12-08] MEDS ORDERED: Oxytocin/0.9 % Sodium Chloride 30 UNIT/500 ML BAG IV SCH ×2 (07:30)
[2019-12-08] MEDS: Misoprostol 25 MCG (1/4 of 100 MCG) Tab PO PRN ×3 (09:15→18:24)
[2019-12-08] MEDS: Lactated Ringers 1,000 ML IV SCH (09:15)
[2019-12-08] MEDS: Misoprostol 25 MCG (1/4 of 100 MCG) Tab VAG PRN ×3 (09:22→18:24)
--- NOTE | 2019-12-08 09:29 | PCM.LDHP ---
L&D History of Present Illness - General Date of Service: 12/08/19 Admit Problem/Dx: Patient Status Order with Admit Dx/Problem 12/08/19 07:27 Patient Status [ADT] Routine Admission Diagnosis/Problem Admission Diagnosis/Problem - planned Source of Information: Patient History Limitations: Reports: No Limitations - Related Data Allergies/Adverse Reactions: Allergies Allergy/AdvReac Type Severity Reaction Status Date / Time No Known Allergies Allergy Verified 11/20/16 23:16 Home Medications: Home Meds No122/Iron/Folic Acid [ Multi Tablet] 1 tab PO DAILY 11/20/16 [History] Past Medical History - Past Health History Medical/Surgical History: Denies Medical/Surgical History HEENT History: Reports: None Cardiovascular History: Reports: None Respiratory History: Reports: None Gastrointestinal History: Reports: GERD Genitourinary History: Reports: None TOURS HOSTESS History: Reports: Musculoskeletal History: Reports: None Neurological History: Reports: None Psychiatric History: Reports: Anxiety Endocrine/Metabolic History: Reports: None Hematologic History: Reports: None Oncologic (Cancer) History: Reports: None Dermatologic History: Reports: None - Infectious Disease History Infectious Disease History: Reports: Chicken Pox - Past Surgical History Female Surgical History: Reports: D&C Social & Family History - Family History Family Medical History: Noncontributory - Caffeine Use Caffeine Use: Reports: None H&P Review of Systems - Review of Systems: Review Of Systems: See Below General: Reports: No Symptoms HEENT: Reports: No Symptoms Pulmonary: Reports: No Symptoms Cardiovascular: Reports: No Symptoms Gastrointestinal: Reports: No Symptoms Genitourinary: Reports: No Symptoms Musculoskeletal: Reports: No Symptoms Skin: Reports: No Symptoms Psychiatric: Reports: No Symptoms Neurological: Reports: No Symptoms Hematologic/Lymphatic: Reports: No Symptoms Immunologic: Reports: No Symptoms L&D Exam - Exam Exam: See Below - OB Specific Contraction Intensity: Mild Movement: Active Heart Tones: Present Heart Rate (FHR) Variability: Moderate (6-25 bmp) - Exam General: Alert, Oriented, Cooperative Lungs: Clear to Auscultation, Normal Respiratory Effort Cardiovascular: Regular Rate, Regular Rhythm GI/Abdominal Exam: Normal Bowel Sounds, Soft, Non-Tender Rectal Exam: Deferred Genitourinary: Deferred Back Exam: Normal Inspection, Full Range of Motion Extremities: Normal Inspection, Normal Range of Motion, Non-Tender, Normal Capillary Refill Skin: Warm, Dry, Intact Neurological: Normal Gait, Normal Speech, Normal Tone, Sensation Intact Psychiatric: Alert, Normal Affect, Normal Mood - Problem List (1) Supervision of normal IUP (intrauterine ) in multigravida SNOMED Code(s): 421200138, 746012095, 553356235 ICD Code: Z34.80 - ENCOUNTER FOR SUPRVSN OF NORMAL , UNSP TRIMESTER Status: Acute Priority: High Current Visit: Yes Qualifiers: Trimester: third trimester Qualified Code(s): Z34.83 - Encounter for supervision of other normal , third trimester Problem List Initiated/Reviewed/Updated: Yes Orders Last 24hrs: Active Orders 24 hr Category Date Time Status Patient Status [ADT] Routine ADT 12/08/19 07:27 Active Bedrest Bathroom Privileges [RC] ASDIRECTED Care 12/08/19 07:27 Active Communication Order [RC] ASDIRECTED Care 12/08/19 07:27 Active Communication Order [RC] ASDIRECTED Care 12/08/19 07:27 Active Communication Order [RC] ASDIRECTED Care 12/08/19 07:27 Active Heart Tones [RC] CONTINUOUS Care 12/08/19 07:27 Active Non Stress Test [RC] PER UNIT ROUTINE Care 12/08/19 07:27 Active May Shower [RC] ASDIRECTED Care 12/08/19 07:27 Active Notify Provider [RC] PRN Care 12/08/19 07:27 Active Notify Provider [RC] PRN Care 12/08/19 07:27 Active Notify Provider [RC] PRN Care 12/08/19 07:27 Active Notify Provider [RC] STAT Care 12/08/19 07:27 Active Oxygen Therapy [RC] ASDIRECTED Care 12/08/19 07:27 Active Up ad Jimena [RC] ASDIRECTED Care 12/08/19 07:27 Active Vaginal Exam [RC] PRN Care 12/08/19 07:27 Active Vaginal Exam [RC] PRN Care 12/08/19 07:27 Active Vital Signs [RC] PER UNIT ROUTINE Care 12/08/19 07:27 Active Vital Signs [RC] PER UNIT ROUTINE Care 12/08/19 07:27 Active CBC W/O DIFF,HEMOGRAM [HEME] Routine Lab 12/08/19 07:27 Ordered RPR (SYPHILIS SERO) W/ RFLX [REF] Routine Lab 12/08/19 07:27 Ordered TYPE AND SCREEN [BBK] Routine Lab 12/08/19 07:27 Ordered Butorphanol [Stadol] Med 12/08/19 07:27 Active 1 mg IVPUSH Q1H PRN Carboprost Tromethamine [Hemabate DS] Med 12/08/19 07:27 Active 250 mcg IM ASDIRECTED PRN Lactated Ringers [Ringers, Lactated] 1,000 ml Med 12/08/19 07:30 Active IV ASDIRECTED Lidocaine 1% [Xylocaine 1%] Med 12/08/19 07:27 Active 50 ml INJECT ONETIME PRN Methylergonovine [Methergine] Med 12/08/19 07:27 Active 0.2 mg IM ASDIRECTED PRN Nalbuphine [Nubain] Med 12/08/19 07:27 Active 10 mg IVPUSH Q1H PRN Oxytocin/0.9 % Sodium Chloride [Oxytocin 30 Unit/500 ML Med 12/08/19 07:30 Active -NS] 30 unit in 500 ml IV TITRATE Oxytocin/0.9 % Sodium Chloride [Oxytocin 30 Unit/500 ML Med 12/08/19 07:30 Active -NS] 30 unit in 500 ml IV TITRATE Sodium Chloride 0.9% [Normal Saline] Med 12/08/19 07:27 Active 10 ml IV ASDIRECTED PRN Sodium Chloride 0.9% [Saline Flush] Med 12/08/19 07:27 Active 10 ml FLUSH ASDIRECTED PRN Sodium Chloride 0.9% [Saline Flush] Med 12/08/19 07:27 Active 2.5 ml FLUSH ASDIRECTED PRN Terbutaline [Brethine] Med 12/08/19 07:27 Active 0.25 mg SUBCUT ASDIRECTED PRN Tranexamic Acid [Cyklokapron] 1,000 mg Med 12/08/19 07:27 Active Sodium Chloride 0.9% [Normal Saline] 100 ml IV ONETIME Water For Irrigation,Sterile [Sterile Water for Med 12/08/19 07:27 Active Irrigation] 1,000 ml IRR ASDIRECTED PRN miSOPROStoL [Cytotec] Med 12/08/19 07:27 Active 200 mcg PO ONETIME PRN miSOPROStoL [Cytotec] Med 12/08/19 08:30 Active 25 mcg PO Q4H PRN miSOPROStoL [Cytotec] Med 12/08/19 08:30 Active 25 mcg VAG Q4H PRN Scalp Electrode [WOMSER] Per Unit Routine Oth 12/08/19 07:27 Ordered Medication Administration Instruction [OM.PC] Q4H Oth 12/08/19 07:30 Ordered Medication Administration Instruction [OM.PC] Q4H Oth 12/08/19 11:30 Ordered Medication Administration Instruction [OM.PC] Q4H Oth 12/08/19 15:30 Ordered Medication Administration Instruction [OM.PC] Q4H Oth 12/08/19 19:30 Ordered Medication Administration Instruction [OM.PC] Q4H Oth 12/08/19 23:30 Ordered Peripheral IV Insertion Adult [OM.PC] Routine Oth 12/08/19 07:27 Ordered Resuscitation Status Routine Resus Stat 12/08/19 07:27 Ordered Medication Orders Butorphanol Tartrate (Stadol) 1 mg IVPUSH Q1H PRN PRN Reason: Pain Carboprost Tromethamine (Hemabate Ds) 250 mcg IM ASDIRECTED PRN PRN Reason: Post Hemorrhage Oxytocin/Sodium Chloride (Oxytocin 30 Unit/500 Ml-Ns) 30 unit in 500 mls @ 500 mls/hr IV TITRATE XIOMARA Tranexamic Acid 1,000 mg/ (Sodium Chloride) 110 mls @ 660 mls/hr IV ONETIME PRN PRN Reason: Bleeding Oxytocin/Sodium Chloride (Oxytocin 30 Unit/500 Ml-Ns) 30 unit in 500 mls @ 2 mls/hr IV TITRATE XIOMARA; Protocol Lactated Ringer's (Ringers, Lactated) 1,000 mls @ 150 mls/hr IV ASDIRECTED XIOMARA Last Admin: 12/08/19 09:15 Dose: 150 mls/hr Documented by: WILLSHE Lidocaine HCl (Xylocaine 1%) 50 ml INJECT ONETIME PRN PRN Reason: Laceration repair Methylergonovine Maleate (Methergine) 0.2 mg IM ASDIRECTED PRN PRN Reason: Post Hemorrhage Misoprostol (Cytotec) 200 mcg PO ONETIME PRN PRN Reason: Post Hemorrhage Misoprostol (Cytotec) 25 mcg VAG Q4H PRN PRN Reason: Cervical Ripening Misoprostol (Cytotec) 25 mcg PO Q4H PRN PRN Reason: Cervical Ripening Last Admin: 12/08/19 09:15 Dose: 25 mcg Documented by: WILFREDO Nalbuphine HCl (Nubain) 10 mg IVPUSH Q1H PRN PRN Reason: Pain (severe 7-10) Sodium Chloride (Saline Flush) 10 ml FLUSH ASDIRECTED PRN PRN Reason: Keep Vein Open Sodium Chloride (Saline Flush) 2.5 ml FLUSH ASDIRECTED PRN PRN Reason: Keep Vein Open Sodium Chloride (Normal Saline) 10 ml IV ASDIRECTED PRN PRN Reason: IV Use Sterile Water (Sterile Water For Irrigation) 1,000 ml IRR ASDIRECTED PRN PRN Reason: delivery Terbutaline Sulfate (Brethine) 0.25 mg SUBCUT ASDIRECTED PRN PRN Reason: Tacysystole Assessment/Plan Comment:: Admit A: at 39 6/7 weeks (ESME: 12/09/19); admit for induction of labor; O+, Rubella immune, GBS negative P: Anticipate ; Epidural PRN; Dr. Bambi montero
[2019-12-08] MEDS ORDERED: Acetaminophen 500 MG Tab PO ONE (18:18)
--- NOTE | 2019-12-09 01:05 | US ---
INDICATION: Bleeding. Placental placement TECHNIQUE: Limited transabdominal obstetrical ultrasound. COMPARISON: 11/23/2019 FINDINGS: A single live intrauterine gestation is seen in vertex position. There is cardiac activity with a heart rate of 132-135 BPM. measurements are not performed and anatomy is not evaluated. The placenta is posterior fundal at the maternal right. The cord insertion is not visualized. The amniotic fluid single deepest pocket measures 3.7 cm, with an BRENDA measured at 9.5 cm. The cervix is not visualized. Neither ovary is seen. IMPRESSION: A single live intrauterine gestation. A posterior fundal placenta. anatomy is not evaluated. Follow-up, as clinically indicated. Dictated by Jakob Tucker MD @ 12/09/2019 1:02:54 AM Dictated by: Jakob Tucker MD @ 12/09/2019 01:03:58 (Electronically Signed)
[2019-12-09] MEDS: Lactated Ringers 1,000 ML IV SCH ×2 (01:18→03:55)
[2019-12-09] MEDS ORDERED: hydrOXYzine Pamoate 25 MG Cap PO PRN (01:22)
[2019-12-09] MEDS: Nalbuphine 10 MG/1 ML Vial IVPUSH PRN ×2 (03:56→06:33)
--- NOTE | 2019-12-09 08:24 | PCM.DEL ---
L & D Note - General Info Date of Service: 12/09/19 Mother's Due Date: 12/09/19 - Delivery Note Labor: Induced by Oxytocin Cervical Ripening Method: Misoprostil Delivery Outcome: Livebirth Infant Delivery Method: Spontaneous Vaginal Delivery-Single Presentation: Vertex Nuchal Cord: Present, Reduced Anesthesia Type: None Anesthetic: Lidocaine (Xylocaine) 1% Plain Local Anesthetic Volume: 5cc Amniotic Fluid Description: Clear Episiotomy Type: None Laceration: 1st Degree Suture type: Vicryl Suture size: 3-0 Placenta: Intact, Spontaneous Cord: 3 Vessels Estimated Blood Loss: 350 Resuscitation Needed: No Score 1 min: 8 Score 5 min: 9 Second Stage Interventions: Reports: Second Nurse Assessed Progress of Descent, Second Nurse Reviewed Contraction Pattern, Second Nurse Reviewed Heart Tones, Encouragement Given, Pushing Effectively Delivery Comments (Free Text/Narrative):: Induction of labor, cytotec to pitocin resulting in viable male infant; amniotic fluid clear; head delivered with good pushing, shoulder and body followed easily after; nuchal x1, reduced; baby to mom's abdomen [id number] for assessment; APGARs 8/9; weight: 8 lb 7oz; placenta delivered grossly intact, 3VC, EBL: 350 mL; pitocin to IV fluid; 1st degree perineal laceration repaired with 3-0 vicryl, hemostatic and well-approximated; mom and baby left in stable condition with nurse at bedside for assessment - General Info Date of Service: 12/09/19 Admission Dx/Problem (Free Text): Patient Status Order with Admit Dx/Problem 12/08/19 07:27 Patient Status [ADT] Routine Admission Diagnosis/Problem Admission Diagnosis/Problem - planned Functional Status: Reports: Pain Controlled - Review of Systems General: Reports: No Symptoms HEENT: Reports: No Symptoms Pulmonary: Reports: No Symptoms Cardiovascular: Reports: No Symptoms Gastrointestinal: Reports: No Symptoms Genitourinary: Reports: No Symptoms Musculoskeletal: Reports: No Symptoms Skin: Reports: No Symptoms Neurological: Reports: No Symptoms Psychiatric: Reports: No Symptoms - Patient Data Weight - Most Recent: 174 lb Lab Results Last 24 Hours: Laboratory Results - last 24 hr 12/08/19 12/08/19 12/08/19 Range/Units 09:18 09:18 10:20 WBC 7.78 (4.0-11.0) K/uL RBC 4.10 L (4.30-5.90) M/uL Hgb 12.5 (12.0-16.0) g/dL Hct 38.3 (36.0-46.0) % MCV 93.4 (80.0-98.0) fL MCH 30.5 (27.0-32.0) pg MCHC 32.6 (31.0-37.0) g/dL RDW Std Deviation 43.1 (28.0-62.0) fl RDW Coeff of Jessy 13 (11.0-15.0) % Plt Count 143 L (150-400) K/uL MPV 10.70 (7.40-12.00) fL Nucleated RBC % 0.0 /100WBC Nucleated RBCs # 0 K/uL SARS-CoV-2 RNA (RT-PCR) NEGATIVE (NEGATIVE) Blood Type O POSITIVE Antibody Screen NEGATIVE Med Orders - Current: Current Medications Butorphanol Tartrate (Stadol) 1 mg IVPUSH Q1H PRN PRN Reason: Pain Carboprost Tromethamine (Hemabate Ds) 250 mcg IM ASDIRECTED PRN PRN Reason: Post Hemorrhage Hydroxyzine Pamoate (Vistaril) 50 mg PO BEDTIME PRN PRN Reason: Sleep Last Admin: 12/09/19 01:33 Dose: 50 mg Documented by: Oxytocin/Sodium Chloride (Oxytocin 30 Unit/500 Ml-Ns) 30 unit in 500 mls @ 500 mls/hr IV TITRATE XIOMARA Tranexamic Acid 1,000 mg/ (Sodium Chloride) 110 mls @ 660 mls/hr IV ONETIME PRN PRN Reason: Bleeding Oxytocin/Sodium Chloride (Oxytocin 30 Unit/500 Ml-Ns) 30 unit in 500 mls @ 2 mls/hr IV TITRATE XIOMARA; Protocol Last Titration: 12/09/19 07:10 Dose: 0 munits/min, 0 mls/hr Documented by: Lactated Ringer's (Ringers, Lactated) 1,000 mls @ 150 mls/hr IV ASDIRECTED XIOMARA Last Admin: 12/09/19 03:55 Dose: 150 mls/hr Documented by: Lidocaine HCl (Xylocaine 1%) 50 ml INJECT ONETIME PRN PRN Reason: Laceration repair Last Admin: 12/09/19 08:02 Dose: 50 ml Documented by: Methylergonovine Maleate (Methergine) 0.2 mg IM ASDIRECTED PRN PRN Reason: Post Hemorrhage Misoprostol (Cytotec) 200 mcg PO ONETIME PRN PRN Reason: Post Hemorrhage Misoprostol (Cytotec) 25 mcg VAG Q4H PRN PRN Reason: Cervical Ripening Last Admin: 12/08/19 18:24 Dose: 25 mcg Documented by: Misoprostol (Cytotec) 25 mcg PO Q4H PRN PRN Reason: Cervical Ripening Last Admin: 12/08/19 18:24 Dose: 25 mcg Documented by: Nalbuphine HCl (Nubain) 10 mg IVPUSH Q1H PRN PRN Reason: Pain (severe 7-10) Last Admin: 12/09/19 06:33 Dose: 10 mg Documented by: Sodium Chloride (Saline Flush) 10 ml FLUSH ASDIRECTED PRN PRN Reason: Keep Vein Open Sodium Chloride (Saline Flush) 2.5 ml FLUSH ASDIRECTED PRN PRN Reason: Keep Vein Open Sodium Chloride (Normal Saline) 10 ml IV ASDIRECTED PRN PRN Reason: IV Use Sterile Water (Sterile Water For Irrigation) 1,000 ml IRR ASDIRECTED PRN PRN Reason: delivery Terbutaline Sulfate (Brethine) 0.25 mg SUBCUT ASDIRECTED PRN PRN Reason: Tacysystole Discontinued Medications Acetaminophen (Tylenol Extra Strength) 500 mg PO ONETIME ONE Stop: 12/08/19 18:19 Last Admin: 12/08/19 18:34 Dose: 500 mg Documented by: - Exam General: Alert, Oriented, Cooperative, No Acute Distress Lungs: Normal Respiratory Effort Cardiovascular: Regular Rate, Regular Rhythm GI/Abdominal Exam: Soft, Non-Tender (Female) Exam: Normal External Exam, Vaginal Tears (1st Degree, repaired with 3-0 vicryl) Back Exam: Normal Inspection, Full Range of Motion Extremities: Normal Inspection, Normal Range of Motion, Non-Tender, No Pedal Edema, Normal Capillary Refill Skin: Warm, Dry, Intact Neurological: No New Focal Deficit, Normal Speech, Normal Tone, Strength Equal Bilateral, Sensation Intact Psy/Mental Status: Alert, Normal Affect, Normal Mood - Problem List & Annotations (1) Supervision of normal IUP (intrauterine ) in multigravida SNOMED Code(s): 671887809, 838274363, 495878041 Code(s): Z34.80 - ENCOUNTER FOR SUPRVSN OF NORMAL , UNSP TRIMESTER Status: Acute Priority: High Current Visit: Yes Qualifiers: Trimester: third trimester Qualified Code(s): Z34.83 - Encounter for supervision of other normal , third trimester (2) Spontaneous vaginal delivery SNOMED Code(s): 356276125 Code(s): O80 - ENCOUNTER FOR FULL-TERM UNCOMPLICATED DELIVERY Status: Acute Priority: High Current Visit: No - Problem List Review Problem List Initiated/Reviewed/Updated: Yes - Plan Plan:: Admit A: at 39 6/7 weeks (ESME: 12/09/19); admit for induction of labor; O+, Rubella immune, GBS negative P: Anticipate ; Epidural PRN; Dr. Lacy updated Delivery A: Induction of labor, cytotec to pitocin resulting in viable male infant; amniotic fluid clear; nuchal x1, reduced; baby to mom's abdomen [id number] for assessment; APGARs 8/9; weight: 8 lb 7oz; placenta delivered grossly intact, 3VC, EBL: 350 mL; pitocin to IV fluid; 1st degree perineal laceration repaired with 3-0 vicryl, hemostatic and well-approximated; mom and baby left in stable condition with nurse at bedside for assessment P: Routine plan of care; Dr. Lacy updated.
[2019-12-09] MEDS ORDERED: oxyCODONE 5 MG Tab PO PRN (08:26)
[2019-12-09] MEDS ORDERED: Bisacodyl 10 MG Supp RECTAL PRN (08:26)
[2019-12-09] MEDS ORDERED: Acetaminophen 500 MG Tab PO PRN ×2 (08:26)
[2019-12-09] MEDS ORDERED: Benzocaine/Menthol 20%-0.5% Spray 78 GM Cannister TOP PRN (08:26)
[2019-12-09] MEDS ORDERED: Witch Hazel Medicated Pads 40/Jar TOP PRN (08:26)
[2019-12-09] MEDS ORDERED: Lanolin 100% Cream 7 GM Tube TOP PRN (08:26)
[2019-12-09] MEDS ORDERED: Ibuprofen 400 MG Tab PO PRN (08:26)
[2019-12-09] MEDS: Ibuprofen 800 MG Tab PO PRN ×3 (09:15→23:39)
[2019-12-09] MEDS: Docusate Sodium 100 MG Cap PO PRN ×2 (09:16→23:39)
[2019-12-10 05:24] VITALS: PULSE 78
[2019-12-10] MEDS: Ibuprofen 800 MG Tab PO PRN (05:43)
--- NOTE | 2019-12-10 07:33 | PCM.DCSUM1 ---
Discharge Summary - Hospital Course Free Text/Narrative:: Discharge home with baby. Follow up in the clinic in 6 weeks for routine visit. Diagnosis: Stroke: No Modified [place] Scale: No Symptoms at All Modified [place] Scale Score: 0 - Discharge Data Discharge Date: 12/10/19 Discharge Disposition: Home, Self-Care 01 Condition: Good - Referral to Home Health Primary Care Physician: PCP Unknown - Discharge Diagnosis/Problem(s) (1) Supervision of normal IUP (intrauterine ) in multigravida SNOMED Code(s): 142926557, 787091026, 133043729 ICD Code: Z34.80 - ENCOUNTER FOR SUPRVSN OF NORMAL , UNSP TRIMESTER Status: Acute Priority: High Current Visit: Yes Qualifiers: Trimester: third trimester Qualified Code(s): Z34.83 - Encounter for supervision of other normal , third trimester (2) Spontaneous vaginal delivery SNOMED Code(s): 627576881 ICD Code: O80 - ENCOUNTER FOR FULL-TERM UNCOMPLICATED DELIVERY Status: Acute Priority: High Current Visit: No - Patient Instructions Diet: Regular Diet as Tolerated, Drink 8-10+ Glasses/Day Activity: As Tolerated, No Strenuous Activities, Rest and Relax Today Driving: May Drive Today Showering/Bathing: May Shower Notify Provider of: Fever, Increased Pain, Swelling and Redness, Drainage, Nausea and/or Vomiting - Discharge Plan *PRESCRIPTION DRUG MONITORING PROGRAM REVIEWED*: Not Applicable *COPY OF PRESCRIPTION DRUG MONITORING REPORT IN PATIENT MARISA: Not Applicable Prescriptions/Med Rec: Ibuprofen [Motrin] 800 mg PO Q6H PRN #90 tablet PRN Reason: Pain Home Medications: Home Meds No122/Iron/Folic Acid [ Multi Tablet] 1 tab PO DAILY 11/20/16 [History] Butalbital/Aspirin/Caffeine [Fiorinal 50-325-40 MG] 1 cap PO ASDIRECTED PRN 12/08/19 [History] Ibuprofen [Motrin] 800 mg PO Q6H PRN #90 tablet 12/10/19 [Rx] Oxygen Therapy Mode: Room Air - Discharge Summary/Plan Comment DC Time >30 min.: Yes - General Info Date of Service: 12/10/19 Admission Dx/Problem (Free Text: Patient Status Order with Admit Dx/Problem 12/08/19 07:27 Patient Status [ADT] Routine Admission Diagnosis/Problem Admission Diagnosis/Problem - planned Functional Status: Reports: Pain Controlled, Tolerating Diet, Ambulating, Urinating - Review of Systems General: Reports: No Symptoms HEENT: Reports: No Symptoms Pulmonary: Reports: No Symptoms Cardiovascular: Reports: No Symptoms Gastrointestinal: Reports: No Symptoms Genitourinary: Reports: No Symptoms Musculoskeletal: Reports: No Symptoms Skin: Reports: No Symptoms Neurological: Reports: No Symptoms Psychiatric: Reports: No Symptoms - Patient Data Vitals - Most Recent: Last Vital Signs Temp 97.4 F 12/10/19 05:22 Pulse 78 12/10/19 05:22 Resp 15 12/10/19 05:22 BP 101/52 L 12/10/19 06:20 Pulse Ox 98 12/10/19 05:22 Weight - Most Recent: 174 lb Lab Results - Last 24 hrs: Laboratory Results - last 24 hr 12/10/19 Range/Units 06:05 Hgb 10.1 L (12.0-16.0) g/dL Hct 31.1 L (36.0-46.0) % Med Orders - Current: Current Medications Acetaminophen (Tylenol Extra Strength) 500 mg PO Q4H PRN PRN Reason: Pain Acetaminophen (Tylenol Extra Strength) 1,000 mg PO Q4H PRN PRN Reason: Pain Last Admin: 12/09/19 13:13 Dose: 1,000 mg Documented by: Benzocaine/Menthol (Dermoplast Pain Relief 20%-0.5% [place]) 78 gm TOP ASDIRECTED PRN PRN Reason: Perineal Comfort Measure Last Admin: 12/09/19 09:14 Dose: 1 canister Documented by: Bisacodyl (Dulcolax) 10 mg RECTAL ONETIME PRN PRN Reason: Constipation Docusate Sodium (Colace) 100 mg PO BID PRN PRN Reason: Constipation Last Admin: 12/09/19 23:39 Dose: 100 mg Documented by: Emollient Ointment (Lansinoh Hpa) 0 gm TOP ASDIRECTED PRN PRN Reason: Sore Nipples Ibuprofen (Motrin) 400 mg PO Q4H PRN PRN Reason: Pain Ibuprofen (Motrin) 800 mg PO Q6H PRN PRN Reason: Pain Last Admin: 12/10/19 05:43 Dose: 800 mg Documented by: Oxycodone HCl (Oxycodone) 5 mg PO Q2H PRN PRN Reason: Pain Witch Selin (Tucks) 1 pad TOP ASDIRECTED PRN PRN Reason: comfort care Last Admin: 12/09/19 09:14 Dose: 1 tub Documented by: Discontinued Medications Acetaminophen (Tylenol Extra Strength) 500 mg PO ONETIME ONE Stop: 12/08/19 18:19 Last Admin: 12/08/19 18:34 Dose: 500 mg Documented by: Butorphanol Tartrate (Stadol) 1 mg IVPUSH Q1H PRN PRN Reason: Pain Carboprost Tromethamine (Hemabate Ds) 250 mcg IM ASDIRECTED PRN PRN Reason: Post Hemorrhage Hydroxyzine Pamoate (Vistaril) 50 mg PO BEDTIME PRN PRN Reason: Sleep Last Admin: 12/09/19 01:33 Dose: 50 mg Documented by: Oxytocin/Sodium Chloride (Oxytocin 30 Unit/500 Ml-Ns) 30 unit in 500 mls @ 500 mls/hr IV TITRATE XIOMARA Tranexamic Acid 1,000 mg/ (Sodium Chloride) 110 mls @ 660 mls/hr IV ONETIME PRN PRN Reason: Bleeding Oxytocin/Sodium Chloride (Oxytocin 30 Unit/500 Ml-Ns) 30 unit in 500 mls @ 2 mls/hr IV TITRATE XIOMARA; Protocol Last Titration: 12/09/19 07:45 Dose: 500 munits/min, 500 mls/hr Documented by: Lactated Ringer's (Ringers, Lactated) 1,000 mls @ 150 mls/hr IV ASDIRECTED XIOMARA Last Admin: 12/09/19 03:55 Dose: 150 mls/hr Documented by: Lidocaine HCl (Xylocaine 1%) 50 ml INJECT ONETIME PRN PRN Reason: Laceration repair Last Admin: 12/09/19 08:02 Dose: 50 ml Documented by: Methylergonovine Maleate (Methergine) 0.2 mg IM ASDIRECTED PRN PRN Reason: Post Hemorrhage Misoprostol (Cytotec) 200 mcg PO ONETIME PRN PRN Reason: Post Hemorrhage Misoprostol (Cytotec) 25 mcg VAG Q4H PRN PRN Reason: Cervical Ripening Last Admin: 12/08/19 18:24 Dose: 25 mcg Documented by: Misoprostol (Cytotec) 25 mcg PO Q4H PRN PRN Reason: Cervical Ripening Last Admin: 12/08/19 18:24 Dose: 25 mcg Documented by: Nalbuphine HCl (Nubain) 10 mg IVPUSH Q1H PRN PRN Reason: Pain (severe 7-10) Last Admin: 12/09/19 06:33 Dose: 10 mg Documented by: Sodium Chloride (Saline Flush) 10 ml FLUSH ASDIRECTED PRN PRN Reason: Keep Vein Open Sodium Chloride (Saline Flush) 2.5 ml FLUSH ASDIRECTED PRN PRN Reason: Keep Vein Open Sodium Chloride (Normal Saline) 10 ml IV ASDIRECTED PRN PRN Reason: IV Use Sterile Water (Sterile Water For Irrigation) 1,000 ml IRR ASDIRECTED PRN PRN Reason: delivery Terbutaline Sulfate (Brethine) 0.25 mg SUBCUT ASDIRECTED PRN PRN Reason: Tacysystole - Exam General: Reports: Alert, Oriented, Cooperative, No Acute Distress Lungs: Reports: Clear to Auscultation, Normal Respiratory Effort Cardiovascular: Reports: Regular Rate, Regular Rhythm GI/Abdominal Exam: Soft, Non-Tender (Female) Exam: Deferred Rectal (Female) Exam: Deferred Back Exam: Reports: Normal Inspection, Full Range of Motion Extremities: Normal Inspection, Normal Range of Motion, Non-Tender, Normal Capillary Refill Skin: Reports: Warm, Dry, Intact Wound/Incisions: Reports: Healing Well Neurological: Reports: No New Focal Deficit, Normal Speech, Normal Tone, Strength Equal Bilateral, Sensation Intact Psy/Mental Status: Reports: Alert, Normal Affect, Normal Mood
[2019-12-10 10:39] VITALS: BP 113/66
== END 2019-12-10 12:25 | disposition home or self-care (01) | DRG 807 ==
LOC: MW.OB 07:17 → OBSVTOIN 12-09 07:43 → MW.OB 12-09 10:20
PROVIDERS: ADMIT Obstetrics & Gynecology; ATTEND Obstetrics & Gynecology
PROC: 10E0XZZ Delivery of Products of Conception, External Approach (ICD-10-PCS; principal; 2019-12-09)
PROC: 10907ZC Drainage of Amniotic Fluid, Therapeutic from Products of Conception, Via Natural or Artificial Opening (ICD-10-PCS; 2019-12-09)
PROC: 3E0P7VZ Introduction of Hormone into Female Reproductive, Via Natural or Artificial Opening (ICD-10-PCS; 2019-12-09)
PROC: 3E033VJ Introduction of Other Hormone into Peripheral Vein, Percutaneous Approach (ICD-10-PCS; 2019-12-09)
PROC: 0HQ9XZZ Repair Perineum Skin, External Approach (ICD-10-PCS; 2019-12-09)
DX: O69.81X0 Labor and delivery complicated by cord around neck, without compression, not applicable or unspecified (principal); Z37.0 Single live birth; Z3A.39 39 weeks gestation of pregnancy; O70.0 First degree perineal laceration during delivery
CPT/HCPCS: 36415; 59025; 59409; 76815; 76815-26; 85014; 85018; 85027; 86592; 86593; 86850; 86900; 86901; A9270-GY; J2001; J2300; J2590; J7120; U0002